=== PATIENT | female | born 1950 | race Two or more races ===

== ENCOUNTER 2025-02-18 06:59 | Day surgery (SDC) | payer OTHER ==
[2025-02-15 13:16] VITALS: BMI 37.5
[2025-02-18 07:23] VITALS: RESP 18
[2025-02-18] MEDS ORDERED: LIDOCAINE HCL/PF 2% SDV 5ML VIAL ONE (07:51)
[2025-02-18] MEDS ORDERED: PROPOFOL 200 ML ONE (07:51)
[2025-02-18 09:19] VITALS: BP 115/66; PULSE 66; TEMP 97.9
== END 2025-02-18 09:15 | disposition home or self-care (01) ==
LOC: FASU-ENDO 06:59
PROVIDERS: ATTEND Internal Medicine Gastroenterology
PROC: 0DJD8ZZ Inspection of Lower Intestinal Tract, Via Natural or Artificial Opening Endoscopic (ICD-10-PCS; principal; 2025-02-18 08:19)
DX: Z12.11 Encounter for screening for malignant neoplasm of colon (principal); K64.1 Second degree hemorrhoids; K57.30 Diverticulosis of large intestine without perforation or abscess without bleeding